=== PATIENT | male | born 1970 | race Hispanic/Latino ===

== ENCOUNTER 2021-04-28 08:48 | Outpatient (CLI) | payer BC ==
[2021-04-28 20:37] LABS: SARS-CoV-2 PCR by NAA Not Detected (NotDetected)
== END 2021-04-28 08:49 | disposition home or self-care (01) ==
LOC: LABBT 08:48
PROVIDERS: ATTEND Specialist
DX: Z01.818 Encounter for other preprocedural examination (principal); Z20.822 Contact with and (suspected) exposure to COVID-19; K11.8 Other diseases of salivary glands
CPT/HCPCS: 93005; 93010; U0003; U0005

== ENCOUNTER 2021-04-30 09:16 | Day surgery (SDC) | payer BC ==
[2021-04-29 12:52] VITALS: BMI 41.3
[2021-04-30] MEDS ORDERED: Fentanyl 100 MCG/2 ML VIAL ONE (11:31)
[2021-04-30] MEDS ORDERED: Midazolam HCl 2 mg/2 ml Vial ONE ×2 (11:31→11:46)
[2021-04-30] MEDS ORDERED: Bacitracin Zinc Ointment 30 gm TUBE ONE (11:35)
[2021-04-30] MEDS ORDERED: Lidocaine 1% w/Epinephrine 1:100K 20 ML VIAL ONE (11:35)
[2021-04-30] MEDS ORDERED: Dexamethasone 20 MG/5 ML VIAL ONE (11:40)
[2021-04-30] MEDS ORDERED: Succinylcholine 200 MG/10 ml SYRINGE FS ONE (11:40)
[2021-04-30] MEDS ORDERED: Lidocaine 1% PF 5 ML VIAL ONE (11:40)
[2021-04-30] MEDS ORDERED: Ondansetron PF 4 MG/2 ML Vial ONE (11:40)
[2021-04-30] MEDS ORDERED: PROPOFOL 200 MG/20 ML VIAL ONE (11:40)
[2021-04-30] MEDS ORDERED: Acetaminophen 500 MG TAB ONE (11:46)
== END 2021-04-30 16:15 | disposition home or self-care (01) ==
LOC: SDC 09:16
PROVIDERS: ATTEND Specialist
PROC: 00BM0ZZ Excision of Facial Nerve, Open Approach (ICD-10-PCS; principal; 2021-04-30)
PROC: 0CBB0ZZ Excision of Right Parotid Duct, Open Approach (ICD-10-PCS; principal; 2021-04-30)
DX: D11.0 Benign neoplasm of parotid gland (principal); Z87.891 Personal history of nicotine dependence
CPT/HCPCS: 88307; 88331; 88334; J1100; J2250; J2405; J2704; J3010